=== PATIENT | female | born 1935 | race Caucasian/White ===

== ENCOUNTER 2017-08-11 12:37 | Inpatient (IN) | payer MEDICARE ==
[~2017-08-11] VITALS: Ht 157.5 cm; Wt 47.2 kg
--- NOTE | ~2017-08-11 | OP ---
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 PROCEDURE: Lumbar laminectomy at L2 and L3 on the left with sublaminar decompression and decompression of the dura with decompression at L2 bone fragments out of the spinal canal. DESCRIPTION AND TECHNIQUE: After induction of general endotracheal anesthesia, the patient was rolled prone on chest and hip rolls. The lumbar spine was prepped and draped using sterile fashion. Fluoroscopic x-ray and spinal needle localized at L2-L3 interspace. Next infiltration of 1:100,000 epinephrine and 1% lidocaine was infiltrated in the soft tissues over L2-L3 interspace. A skin incision was carried out from the spinous process of L2-L3 and using Bovie cautery, the spinous processes and lamina of L2 and L3 were exposed on the left side in the subperiosteal manner that was confirmed with fluoroscopic x-ray. A microscope and [place] drill were used to perform a laminectomy at L2-L3 on the left. The spinous processes were undermined with [place] drill. Hypertrophied ligamentum flavum was removed with Cloward rongeurs. Following this just lateral to the dura, several downward pushing curettes were used to remove bone fragments from the spinal canal under fluoroscopic control with L2 vertebral body. Following this, the canal appeared to be decompressed well. Meticulous hemostasis was maintained throughout the wound. Wound was irrigated with copious amounts of Ancef irrigant solution. The fascia was closed with 2-0 Vicryl suture, the subdermal layer was closed with 3-0 Vicryl suture. The skin was closed with sheyla. A sterile dressing was applied to the wound. The patient was awakened in good condition and taken to recovery. All counts were reported as correct. Estimated blood loss was minimal. TRANSINT:[id number] Voice Confirmation ID: [id number] DOCUMENT ID: [id number] DELANEY HERNANDEZ MD at 1545 CC: [id number] DICTATION DATE: 08/19/17 1633 PHARMACOGENETICIST: 08/19/17 [id number] DIS IN 08/21/17 [facility] [address] [place] [address]
[2017-08-11 20:00] VITALS: BP 109/43
[2017-08-11] MEDS ORDERED: LOVENOX40 MG/0.4 SC (20:09)
[2017-08-11] MEDS ORDERED: SYNTHROID50 MCG PO (20:10)
[2017-08-11] MEDS ORDERED: CARAFATE1 G PO (20:10)
[2017-08-11] MEDS ORDERED: LISINOPRIL10 MG PO (20:11)
[2017-08-11] MEDS ORDERED: PROTONIX40 MG PO (20:11)
[2017-08-11] MEDS ORDERED: RISPERDAL0.5 MG PO (20:12)
[2017-08-11] MEDS ORDERED: MULTI-DAY VITAM1 TAB PO (20:13)
[2017-08-11] MEDS ORDERED: ROCEPHIN 1 GM/D51 G1 IV (20:13)
[2017-08-11] MEDS ORDERED: ACETAMINOPHEN325 MG PO (20:14)
[2017-08-11] MEDS ORDERED: ONDANSETRON4 MG/2 M3 IV (20:15)
[2017-08-11] MEDS ORDERED: HYDROCODON-ACE1 EAC7 PO (20:16)
[2017-08-11] MEDS ORDERED: DILAUD1MGAMP IV (20:17)
[2017-08-11 23:00] VITALS: BP 95/43
[2017-08-12 01:29] VITALS: BP 122/40
[2017-08-12 04:16] VITALS: BMI 25.6
[2017-08-12 04:59] VITALS: BP 98/74
[2017-08-12 05:50] LABS: BASOPHILS 0.3 % (0-2); EOSINOPHILS 2.4 % (0-7); HEMATOCRIT 35.9 % (36.0-48.0); HEMOGLOBIN 12.1 g/dL (12-16); IMMATURE GRANULOCYTES 1.4 % (0-5); LYMPHOCYTES 23.6 % (15-50); MCH 31.7 pg (26.0-34.0); MCHC 33.7 g/dL (31.0-37.0); MEAN PLATELET VOLUME 8.6 fL (7.4-10.4); MONOCYTES 10.6 % (2-11); NEUTROPHILS 61.7 % (40-80); PLATELET COUNT 319 10x3/uL (130-400); RBC 3.82 10x6/uL (4.00-5.40); RDW 13.7 % (11.5-14.5); WBC 10.4 10x3/uL (4.8-10.8)
[2017-08-12 06:19] LABS: ALBUMIN 2.4 g/dL (3.4-5.0); ALKALINE PHOSPHATASE 148 U/L (46-116); ALT (SGPT) 22 U/L (10-68); CALC OSMOLALITY 270 mosm/kg (275-300); CALCIUM 9.1 mg/dL (8.5-10.1); CARBON DIOXIDE 28.7 mmol/L (21.0-32.0); CHLORIDE - SERUM 98 mmol/L (98-107); CREATININE - SERUM 0.7 mg/dL (0.6-1.3); GLUCOSE 117 mg/dL (74-106); POTASSIUM - SERUM 5.3 mmol/L (3.5-5.1); SODIUM 133 mmol/L (136-145); UREA NITROGEN 24 mg/dL (7-18); eGFR NON AFRICAN AMERICAN 85 mL/min (90-120)
[2017-08-12 08:28] VITALS: BP 98/46
[2017-08-12 10:42] VITALS: Ht 157.5 cm; Wt 47.2 kg
[2017-08-12 12:08] VITALS: BP 132/48
[2017-08-12 16:19] VITALS: BP 101/45
[2017-08-12 22:39] VITALS: BP 117/47
[2017-08-13 05:31] VITALS: BP 101/34
[2017-08-13] MEDS ORDERED: MIRALAX17 GM PO (05:35)
[2017-08-13 06:17] LABS: BASOPHILS 0.3 % (0-2); EOSINOPHILS 2.3 % (0-7); HEMATOCRIT 35.9 % (36.0-48.0); HEMOGLOBIN 12.1 g/dL (12-16); IMMATURE GRANULOCYTES 1.8 % (0-5); MCH 31.8 pg (26.0-34.0); MCHC 33.7 g/dL (31.0-37.0); MCV 94.5 fL (80.0-100.0); MEAN PLATELET VOLUME 8.7 fL (7.4-10.4); MONOCYTES 8.8 % (2-11); NEUTROPHILS 63.8 % (40-80); PLATELET COUNT 301 10x3/uL (130-400); RDW 13.8 % (11.5-14.5); WBC 8.8 10x3/uL (4.8-10.8)
[2017-08-13 06:44] LABS: CALC OSMOLALITY 272 mosm/kg (275-300); CALCIUM 8.9 mg/dL (8.5-10.1); CARBON DIOXIDE 29.2 mmol/L (21.0-32.0); CHLORIDE - SERUM 100 mmol/L (98-107); CREATININE - SERUM 0.6 mg/dL (0.6-1.3); GLUCOSE 117 mg/dL (74-106); POTASSIUM - SERUM 5.3 mmol/L (3.5-5.1); SODIUM 134 mmol/L (136-145); UREA NITROGEN 24 mg/dL (7-18); eGFR NON AFRICAN AMERICAN > 90 mL/min (90-120)
[2017-08-13 07:57] VITALS: BP 136/57
[2017-08-13 11:32] VITALS: BP 120/55
[2017-08-13 23:32] VITALS: BP 133/60
[2017-08-14 04:00] VITALS: BP 122/55
[2017-08-14 05:49] LABS: BASOPHILS 0 % (0-2); EOSINOPHILS 0 % (0-7); HEMATOCRIT 33.1 % (36.0-48.0); HEMOGLOBIN 11.3 g/dL (12-16); IMMATURE GRANULOCYTES 1.1 % (0-5); LYMPHOCYTES 9.1 % (15-50); MCH 31.6 pg (26.0-34.0); MCHC 34.1 g/dL (31.0-37.0); MEAN PLATELET VOLUME 8.8 fL (7.4-10.4); MONOCYTES 7.1 % (2-11); NEUTROPHILS 82.7 % (40-80); PLATELET COUNT 296 10x3/uL (130-400); RBC 3.58 10x6/uL (4.00-5.40); RDW 13.3 % (11.5-14.5); WBC 9.2 10x3/uL (4.8-10.8)
[2017-08-14 06:00] LABS: MCV 92.5 fL (80.0-100.0)
[2017-08-14 06:14] LABS: CALCIUM 8.9 mg/dL (8.5-10.1); CARBON DIOXIDE 27.4 mmol/L (21.0-32.0); CHLORIDE - SERUM 97 mmol/L (98-107); CREATININE - SERUM 0.5 mg/dL (0.6-1.3); GLUCOSE 132 mg/dL (74-106); SODIUM 131 mmol/L (136-145); eGFR NON AFRICAN AMERICAN > 90 mL/min (90-120)
[2017-08-14 06:15] LABS: CALC OSMOLALITY 265 mosm/kg (275-300); POTASSIUM - SERUM 4.4 mmol/L (3.5-5.1); UREA NITROGEN 16 mg/dL (7-18)
[2017-08-14 07:59] VITALS: BP 155/64
[2017-08-14 12:31] VITALS: BP 115/50
[2017-08-14 16:19] VITALS: BP 136/61
[2017-08-14 21:39] VITALS: BP 134/52
[2017-08-15 00:15] VITALS: BP 140/53
[2017-08-15 04:00] VITALS: BP 154/71
[2017-08-15 08:54] VITALS: BP 124/51
[2017-08-15 11:42] VITALS: BP 130/56
[2017-08-15 16:30] VITALS: BP 151/60
[2017-08-15 23:18] VITALS: BP 151/66
[2017-08-16 02:11] VITALS: BP 149/64
[2017-08-16 05:08] VITALS: BP 155/56
[2017-08-16 09:24] VITALS: BP 137/54
[2017-08-16 12:48] VITALS: BP 152/68
[2017-08-16 16:10] VITALS: BP 140/54
[2017-08-16 22:20] VITALS: BP 161/64
[2017-08-17] VITALS (7 sets, daily range): BP systolic 127–164; BP diastolic 50–81
[2017-08-18 01:39] VITALS: BP 151/70
[2017-08-18 05:15] VITALS: BP 155/70
[2017-08-18 08:37] VITALS: BP 147/59
[2017-08-18 11:47] VITALS: BP 125/65
[2017-08-18 12:46] LABS: BASOPHILS 0.4 % (0-2); EOSINOPHILS 3.3 % (0-7); HEMATOCRIT 34.9 % (36.0-48.0); HEMOGLOBIN 11.9 g/dL (12-16); IMMATURE GRANULOCYTES 1.2 % (0-5); LYMPHOCYTES 26.4 % (15-50); MCH 31.6 pg (26.0-34.0); MCHC 34.1 g/dL (31.0-37.0); MCV 92.8 fL (80.0-100.0); MEAN PLATELET VOLUME 8.9 fL (7.4-10.4); MONOCYTES 9.4 % (2-11); NEUTROPHILS 59.3 % (40-80); PLATELET COUNT 299 10x3/uL (130-400); RBC 3.76 10x6/uL (4.00-5.40); RDW 13.8 % (11.5-14.5); WBC 9.5 10x3/uL (4.8-10.8)
[2017-08-18 13:01] LABS: ALBUMIN 2.4 g/dL (3.4-5.0); ALKALINE PHOSPHATASE 136 U/L (46-116); ALT (SGPT) 23 U/L (10-68); CALC OSMOLALITY 267 mosm/kg (275-300); CALCIUM 8.8 mg/dL (8.5-10.1); CARBON DIOXIDE 27.2 mmol/L (21.0-32.0); CHLORIDE - SERUM 100 mmol/L (98-107); CREATININE - SERUM 0.6 mg/dL (0.6-1.3); GLUCOSE 92 mg/dL (74-106); POTASSIUM - SERUM 4.2 mmol/L (3.5-5.1); PROTEIN - SERUM 6.1 g/dL (6.4-8.2); SODIUM 134 mmol/L (136-145); UREA NITROGEN 13 mg/dL (7-18); eGFR NON AFRICAN AMERICAN > 90 mL/min (90-120)
[2017-08-18 15:50] VITALS: BP 123/57
[2017-08-18 22:21] VITALS: BP 142/62
[2017-08-19] VITALS (10 sets, daily range): BP systolic 104–154; BP diastolic 52–89
[2017-08-19 06:41] LABS: BASOPHILS 0.2 % (0-2); EOSINOPHILS 3.1 % (0-7); HEMATOCRIT 36.1 % (36.0-48.0); IMMATURE GRANULOCYTES 1.2 % (0-5); LYMPHOCYTES 28.9 % (15-50); MCH 30.9 pg (26.0-34.0); MCHC 33.2 g/dL (31.0-37.0); MEAN PLATELET VOLUME 9.4 fL (7.4-10.4); MONOCYTES 9.8 % (2-11); NEUTROPHILS 56.8 % (40-80); PLATELET COUNT 327 10x3/uL (130-400); RBC 3.88 10x6/uL (4.00-5.40); RDW 13.9 % (11.5-14.5); WBC 8.1 10x3/uL (4.8-10.8)
[2017-08-19 07:03] LABS: ALBUMIN 2.5 g/dL (3.4-5.0); ALKALINE PHOSPHATASE 133 U/L (46-116); ALT (SGPT) 24 U/L (10-68); CALC OSMOLALITY 271 mosm/kg (275-300); CALCIUM 9.3 mg/dL (8.5-10.1); CARBON DIOXIDE 27.4 mmol/L (21.0-32.0); CHLORIDE - SERUM 99 mmol/L (98-107); CREATININE - SERUM 0.5 mg/dL (0.6-1.3); GLUCOSE 109 mg/dL (74-106); POTASSIUM - SERUM 3.9 mmol/L (3.5-5.1); PROTEIN - SERUM 6.2 g/dL (6.4-8.2); SODIUM 135 mmol/L (136-145); UREA NITROGEN 16 mg/dL (7-18); eGFR NON AFRICAN AMERICAN > 90 mL/min (90-120)
[2017-08-20 01:36] VITALS: BP 149/66
[2017-08-20 04:46] VITALS: BP 154/68
[2017-08-20 06:21] LABS: BASOPHILS 0 % (0-2); EOSINOPHILS 0.1 % (0-7); HEMATOCRIT 33.6 % (36.0-48.0); HEMOGLOBIN 11.2 g/dL (12-16); IMMATURE GRANULOCYTES 0.7 % (0-5); LYMPHOCYTES 7.4 % (15-50); MCH 31.3 pg (26.0-34.0); MCHC 33.3 g/dL (31.0-37.0); MCV 93.9 fL (80.0-100.0); MEAN PLATELET VOLUME 8.8 fL (7.4-10.4); MONOCYTES 5.6 % (2-11); NEUTROPHILS 86.2 % (40-80); PLATELET COUNT 292 10x3/uL (130-400); RBC 3.58 10x6/uL (4.00-5.40); RDW 13.7 % (11.5-14.5)
[2017-08-20 06:22] LABS: WBC 10.4 10x3/uL (4.8-10.8)
[2017-08-20 06:53] LABS: ALBUMIN 2.6 g/dL (3.4-5.0); ALKALINE PHOSPHATASE 130 U/L (46-116); ALT (SGPT) 25 U/L (10-68); CALC OSMOLALITY 273 mosm/kg (275-300); CALCIUM 9.5 mg/dL (8.5-10.1); CARBON DIOXIDE 26.7 mmol/L (21.0-32.0); CHLORIDE - SERUM 101 mmol/L (98-107); CREATININE - SERUM 0.6 mg/dL (0.6-1.3); GLUCOSE 149 mg/dL (74-106); PROTEIN - SERUM 6.2 g/dL (6.4-8.2); SODIUM 135 mmol/L (136-145); UREA NITROGEN 14 mg/dL (7-18); eGFR NON AFRICAN AMERICAN > 90 mL/min (90-120)
[2017-08-20 06:54] LABS: POTASSIUM - SERUM 4.9 mmol/L (3.5-5.1)
[2017-08-20 10:33] VITALS: BP 148/77
[2017-08-20 11:35] VITALS: BP 124/49
[2017-08-20 16:18] VITALS: BP 127/70
[2017-08-20 23:49] VITALS: BP 114/54
[2017-08-21 05:19] LABS: BASOPHILS 0.1 % (0-2); EOSINOPHILS 1.1 % (0-7); HEMOGLOBIN 10.4 g/dL (12-16); IMMATURE GRANULOCYTES 0.6 % (0-5); LYMPHOCYTES 21.2 % (15-50); MCH 31.4 pg (26.0-34.0); MCHC 33.5 g/dL (31.0-37.0); MCV 93.7 fL (80.0-100.0); MEAN PLATELET VOLUME 8.8 fL (7.4-10.4); MONOCYTES 10.4 % (2-11); NEUTROPHILS 66.6 % (40-80); PLATELET COUNT 297 10x3/uL (130-400); RBC 3.31 10x6/uL (4.00-5.40); RDW 14.1 % (11.5-14.5); WBC 10.5 10x3/uL (4.8-10.8)
[2017-08-21 05:25] VITALS: BP 136/47
[2017-08-21 05:48] LABS: HEMOGLOBIN A1C 5.9 % (4.8-6.0)
[2017-08-21 05:57] LABS: ALBUMIN 2.5 g/dL (3.4-5.0); ALKALINE PHOSPHATASE 116 U/L (46-116); ALT (SGPT) 25 U/L (10-68); BILIRUBIN - TOTAL 0.29 mg/dL (0.2-1.3); CALC OSMOLALITY 272 mosm/kg (275-300); CALCIUM 9.2 mg/dL (8.5-10.1); CARBON DIOXIDE 26.4 mmol/L (21.0-32.0); CHLORIDE - SERUM 101 mmol/L (98-107); CREATININE - SERUM 0.5 mg/dL (0.6-1.3); GLUCOSE 106 mg/dL (74-106); SODIUM 136 mmol/L (136-145); UREA NITROGEN 14 mg/dL (7-18); eGFR NON AFRICAN AMERICAN > 90 mL/min (90-120)
[2017-08-21 06:01] LABS: POTASSIUM - SERUM 3.7 mmol/L (3.5-5.1)
[2017-08-21 09:27] VITALS: BP 134/45
[2017-08-21 11:34] VITALS: BP 130/52
[2017-08-21 12:26] VITALS: BP 130/52
[2017-08-21] MEDS ORDERED: TESSALON PERLE100 MG PO (14:23)
[2017-08-21] MEDS ORDERED: MUCINEX600 MG PO (14:24)
== END 2017-08-21 20:17 | DRG 516 ==
LOC: D.ER 12:37 → OBSVTIME 17:55 → D.MS 17:55
PROVIDERS: Family Medicine; Internal Medicine Nephrology; Neurological Surgery
PROC: 0QU03JZ Supplement Lumbar Vertebra with Synthetic Substitute, Percutaneous Approach (ICD-10-PCS; 2017-08-13)
PROC: 0QS03ZZ Reposition Lumbar Vertebra, Percutaneous Approach (ICD-10-PCS; principal; 2017-08-13 08:30)
PROC: 01NB0ZZ Release Lumbar Nerve, Open Approach (ICD-10-PCS; 2017-08-19)
PROC: 0QC00ZZ Extirpation of Matter from Lumbar Vertebra, Open Approach (ICD-10-PCS; 2017-08-19)
DX: S32.029A Unspecified fracture of second lumbar vertebra, initial encounter for closed fracture (principal); N17.9 Acute kidney failure, unspecified; E87.5 Hyperkalemia; E03.9 Hypothyroidism, unspecified; K21.9 Gastro-esophageal reflux disease without esophagitis; F41.9 Anxiety disorder, unspecified; M48.062 Spinal stenosis, lumbar region with neurogenic claudication; W19.XXXA Unspecified fall, initial encounter; M43.16 Spondylolisthesis, lumbar region